=== PATIENT | male | born 1995 | race Caucasian/White ===

== ENCOUNTER 2017-01-10 12:16 | Emergency (ER) | payer BC ==
[2017-01-10 12:38] VITALS: BP 109/67
--- NOTE | 2017-01-10 12:47 | UC ---
Throat Pain/Nasal Julius HPI - HPI Summary HPI Summary: Pt c/o generalized malaise, fatigue, sore throat and fever X 4 days. Pt was seen at [facility] and had a negative rapid strep test. Pt is waiting for the final culture report. - History of Current Complaint Chief Complaint: UCRespiratory Stated Complaint: SORE THROAT WEAKNESS Time Seen by Provider: 01/10/17 12:39 Hx Obtained From: Patient Onset/Duration: Sudden Onset, Lasting Days, Still Present Severity: Moderate Associated Signs & Symptoms: Positive: Fever - Allergies/Home Medications Allergies/Adverse Reactions: Allergies Allergy/AdvReac Type Severity Reaction Status Date / Time Penicillins Allergy Rash Verified 01/10/17 12:38 Home Medications: Home Medications Acetaminophen TAB* [Tylenol TAB*] 650 mg PO Q12H PRN 01/10/17 [History Confirmed 01/10/17] Ibuprofen TAB* [Motrin TAB* 800 MG] 800 mg PO Q68H PRN 01/10/17 [History Confirmed 01/10/17] PMH/Surg Hx/FS Hx/Imm Hx Previously Healthy: Yes - Surgical History Surgical History: Yes Surgery Procedure, Year, and Place: right hip surgery - 03/10/14 - Family History Known Family History: Positive: Cardiac Disease - Social History Occupation: Student - [employer] Lives: Dormitory/Roommates Alcohol Use: Rare Substance Use Type: None Smoking Status (MU): Never Smoked Tobacco Have You Smoked in the Last Year: No - Immunization History Most Recent Influenza Vaccination: [id number] Review of Systems Constitutional: Fever, Chills, Fatigue Skin: Negative Eyes: Negative ENT: Sore Throat Respiratory: Negative Cardiovascular: Negative Gastrointestinal: Negative Genitourinary: Negative Motor: Negative Neurovascular: Negative Musculoskeletal: Negative Neurological: Negative Psychological: Negative Is Patient Immunocompromised?: No All Other Systems Reviewed And Are Negative: Yes Physical Exam Triage Information Reviewed: Yes Appearance: Well-Appearing Vital Signs: Initial Vital Signs Temp 99.9 F 01/10/17 12:30 Pulse 98 01/10/17 12:30 Resp 18 01/10/17 12:30 BP 109/67 01/10/17 12:30 Pulse Ox 98 01/10/17 12:30 Vital Signs Reviewed: Yes Eye Exam: Normal ENT Exam: Other ENT: Positive: Pharyngeal erythema, TM bulging - bilateral Dental Exam: Normal Neck exam: Normal Respiratory Exam: Normal Cardiovascular Exam: Normal Musculoskeletal Exam: Normal Neurological Exam: Normal Psychological Exam: Normal Skin Exam: Normal Throat Pain/Nasal Course/Dx - Differential Dx/Diagnosis Differential Diagnosis/HQI/PQRI: Mononucleosis, URI Provider Diagnoses: Viral syndrome. sore throat Discharge - Discharge Plan Condition: Stable Disposition: HOME Patient Education Materials: Pharyngitis (ED), Viral Syndrome (ED) Forms: *Work Release Referrals: Non Staff,Doctor [Primary Care Provider] - If Needed Additional Instructions: Please follow up with your PCP or return to clinic as needed.
[2017-01-10 18:58] LABS: EBV Response NO
[2017-01-10 19:18] LABS: Manual Entry Verification MER0007; Mono Internal Control QC Line Present
== END 2017-01-10 13:17 | disposition home or self-care (01) ==
LOC: UCCORT 12:16
DX: B34.9 Viral infection, unspecified (principal); J02.9 Acute pharyngitis, unspecified; Z88.0 Allergy status to penicillin
CPT/HCPCS: 36415; 86308; 99211; G0463

== ENCOUNTER 2018-08-15 08:24 | Emergency (ER) | payer BC ==
[2018-08-15 08:47] VITALS: BP 123/64
--- NOTE | 2018-08-15 08:53 | UC ---
Skin Complaint HPI - HPI Summary HPI Summary: 23 -year-old male who removed a tick from his left hip yesterday. He states it had been embedded less than 6 hours. - History of Current Complaint Chief Complaint: UCSkin Time Seen by Provider: 08/15/18 08:39 Stated Complaint: TICK BITE Hx Obtained From: Patient Onset/Duration: Sudden Onset Skin Exposure Onset/Duration: Minutes Ago - Removed the tick last evening. Onset Severity: Mild Current Severity: Mild Pain Intensity: 2 Location: Other - Left hip Aggravating Factor(s): Nothing Alleviating Factor(s): Nothing Associated Signs & Symptoms: Positive: Negative Related History: Insect Bite/Sting - Allergy/Home Medications Allergies/Adverse Reactions: Allergies Allergy/AdvReac Type Severity Reaction Status Date / Time Penicillins Allergy Rash Verified 08/15/18 08:47 PMH/Surg Hx/FS Hx/Imm Hx Previously Healthy: Yes - Surgical History Surgical History: Yes Surgery Procedure, Year, and Place: right hip surgery - 03/10/14 - Family History Known Family History: Positive: None, Cardiac Disease - Social History Alcohol Use: Rare Substance Use Type: None Smoking Status (MU): Never Smoked Tobacco Have You Smoked in the Last Year: No - Immunization History Most Recent Influenza Vaccination: [id number] Review of Systems All Other Systems Reviewed And Are Negative: Yes Skin: Positive: Other - Removed a tick last evening, has a small bruise present. Is Patient Immunocompromised?: No Physical Exam Triage Information Reviewed: Yes Appearance: Well-Appearing, No Pain Distress, Well-Nourished Vital Signs: Initial Vital Signs Temp 98.1 F 08/15/18 08:43 Pulse 67 08/15/18 08:43 Resp 16 08/15/18 08:43 BP 123/64 08/15/18 08:43 Pulse Ox 99 08/15/18 08:43 Vital Signs Reviewed: Yes Musculoskeletal Exam: Normal Neurological: Positive: Alert, Muscle Tone Normal Psychological Exam: Normal Skin: Positive: Other - Small bruise measuring approximately 4 mm in diameter on his left hip. There is no foreign body noted. Course/Dx - Course Course Of Treatment: Since the tick has been embedded for less than 6 hours at this point in time the patient is agreeable to no prophylactic treatment. We discussed symptoms of Lyme disease and those instructions were given. Also to watch for any local infection. - Diagnoses Provider Diagnosis: Tick bite Discharge - Sign-Out/Discharge Documenting (check all that apply): Patient Departure All imaging exams completed and their final reports reviewed: No Studies - Discharge Plan Condition: Good Disposition: HOME Patient Education Materials: Tick Bite (ED) Referrals: No Primary Care Phys,NOPCP [Primary Care Provider] - [facility] [Outside] Additional Instructions: Follow up with your primary care provider if any signs or symptoms of Lyme disease as reviewed.. - Billing Disposition and Condition Condition: GOOD Disposition: Home - Attestation Statements Provider Attestation: Per institutional requirements, I have reviewed the chart, however, I was not consulted specifically or made aware of this patient by the midlevel provider. I did not personally evaluate, interact with , or disposition this patient.
== END 2018-08-15 09:00 | disposition home or self-care (01) ==
LOC: UCCORT 08:24
DX: S70.262A Insect bite (nonvenomous), left hip, initial encounter (principal); X58.XXXA Exposure to other specified factors, initial encounter
CPT/HCPCS: 99211; G0463